=== PATIENT | male | born 1950 | race Caucasian/White ===

== ENCOUNTER → 2024-01-07 10:42 | Outpatient (REF) | payer MEDICARE, OTHER, SELFPAY | LOC: HWRAD 10:42 | PROVIDERS: ATTENDING PHYSICIAN Family Medicine | DX: E78.2 Mixed hyperlipidemia (principal) | CPT/HCPCS: 75571 ==

== ENCOUNTER → 2024-04-06 07:27 | Outpatient (REF) | payer MEDICARE, OTHER, SELFPAY | LOC: RCS 07:27 | PROVIDERS: ATTENDING PHYSICIAN Internal Medicine Cardiovascular Disease; FAMILY PHYSICIAN Family Medicine | DX: E78.2 Mixed hyperlipidemia (principal); R93.1 Abnormal findings on diagnostic imaging of heart and coronary circulation; I71.21 Aneurysm of the ascending aorta, without rupture; I00 Rheumatic fever without heart involvement | CPT/HCPCS: 93017 ==

== ENCOUNTER → 2024-04-28 09:17 | Outpatient (REF) | payer MEDICARE, OTHER, SELFPAY | LOC: HWRCS 09:17 | PROVIDERS: ATTENDING PHYSICIAN Internal Medicine Cardiovascular Disease; FAMILY PHYSICIAN Family Medicine | DX: E78.2 Mixed hyperlipidemia (principal); R93.1 Abnormal findings on diagnostic imaging of heart and coronary circulation; Z78.9 Other specified health status; I00 Rheumatic fever without heart involvement | CPT/HCPCS: 93306 ==

== ENCOUNTER → 2024-05-05 11:07 | Outpatient (REF) | payer MEDICARE, OTHER, SELFPAY | LOC: DHCBC/DCA 11:07 | PROVIDERS: ATTENDING PHYSICIAN Internal Medicine Cardiovascular Disease; FAMILY PHYSICIAN Family Medicine | DX: R94.39 Abnormal result of other cardiovascular function study (principal); R93.1 Abnormal findings on diagnostic imaging of heart and coronary circulation; I71.21 Aneurysm of the ascending aorta, without rupture; E78.2 Mixed hyperlipidemia | CPT/HCPCS: 78452; 93017; A9500 ==

== ENCOUNTER 2024-09-04 16:53 | Emergency (ER) | payer MEDICARE, OTHER, SELFPAY ==
[2024-09-04 16:55] VITALS: BP 175/96
--- NOTE | 2024-09-04 17:58 | ED.GENMED ---
History of Present Illness
General
Chief Complaint: Fall
Time Seen by Provider: 09/04/24 17:48
History of Present Illness
History of Present Illness:
74-year-old male history of hyperlipidemia presenting status post mechanical fall. Patient states that the bottom of his shoe got caught on step causing him to trip and fall. Patient states that he landed on his right side. Patient reports
striking his head, no loss of consciousness. Patient reports right shoulder pain, right lower rib pain and right hand pain. Patient denies numbness, weakness or tingling. Patient is not on blood thinners. Tetanus up-to-date. Patient denies neck
or back pain.
Phy Exam
Physical Exam
Physical Exam:
General: Alert, no acute distress
Head: 1.5cm laceration superior to right eyebrow with inferior superficial abrasion. ecchymosis inferior to right eye
Eyes: clear conjunctiva
Neck: supple
Cardiac: regular rate and rhythm, no murmur
Lungs: clear to auscultation bilaterally. No wheezes, rales, or rhonchi. Speaking full unlabored sentences. No respiratory distress.
Abdomen: soft, nondistended nontender. No rebound or guarding.
MSK: no lower extremity edema bilaterally. No deformity. no tenderness to palpation to right shoulder. FROM right shoulder. no tenderness to palpation to right elbow, wrist, or hand. no right snuff box tenderness. superficial abrasion to lateral
aspect of right 5th metacarpal. ecchymosis to radial aspect of right hand. 2+ right radial pulse. FROM bilateral hips and knees.
Skin: warm, dry
Neuro: Alert and oriented x3. no focal deficits
Course
Orders/Labs/Results
Orders:
Orders
09/04/24 17:56
CT Cervical Spine W/o Iv Contr Urgent
Comment:
Reason For Exam: fall
CT Head W/o Iv Contrast Urgent
Comment:
Reason For Exam: fall head trauma
CR Hand - Right Min 3 Views Urgent
Comment:
Reason For Exam: pain/bruising
CR Shoulder - Right Min 2 View Urgent
Comment:
Reason For Exam: pain s/p fall
CXR2 [CR Chest - 2 Views ] Urgent
Comment:
Reason For Exam: fall, right lower rib pain
09/04/24 20:42
Ibuprofen [Motrin] 800 mg PO NOW STA
Vital Signs
Initial and Last Documented VS:
Initial Vital Signs
Temp Pulse Resp BP Pulse Ox
97.9 F 68 16 175/96 98
09/04/24 16:55 09/04/24 16:55 09/04/24 16:55 09/04/24 16:55 09/04/24 16:55
Last Documented Vital Signs
Temp Pulse Resp BP Pulse Ox
97.9 F 68 16 175/96 98
09/04/24 16:55 09/04/24 16:55 09/04/24 16:55 09/04/24 16:55 09/04/24 16:55
Procedures
Laceration Closure
superior to right eyebrow:
Status of Wound: clean
Size of Wound in cm: 1.5
Description of Wound Edges: sharp
Preparation: cleaned with saline
Anesthesia: 2% Lidocaine with epi
Revision/Debridement: routine- no revision
Type of Closure: single layer closure
Skin Closure Material: 5-0 nylon
Number of sutures: 5
Splinting/Sling Placement
right wrist:
Pre-splint extermity exam: neurovascular intact
Type of splint: jamshid wrap and volar
Splint material: fiberglass
Splint checked by provider?: Yes
Normal distal neurovascular exam?: Yes
MDM/Problems Addressed
Differential Diagnosis Includes:
Fracture, dislocation, muscular strain, intracranial hemorrhage
MDM/Problems Addressed:
Results reviewed. X-ray right hand shows nondisplaced fracture at the radial styloid with intra-articular extension, no dislocation.
CT head/cervical spine shows 1. No acute intracranial abnormality noted. 2. No acute fracture or subluxation of the cervical spine. Multilevel degenerative changes of the cervical spine.
X-ray right shoulder shows no fracture/dislocation
Chest x-ray shows no displaced rib fracture. No pneumothorax
Discussed results with patient at bedside. Applied volar splint to right wrist. Repaired laceration. Offered sling for right shoulder pain, patient declined. Stable for discharge with orthopedic and PCP follow-up
*Critical Care Note
Total Time (30-74mins, 75-104mins- exclusive of procedures): Not Applicable
ED Attending Note
-
Portions of this chart may have been created with voice recognition software.� Occasional wrong word or��sound alike� substitutions may have occurred due to the inherent limitations of voice recognition software.
Discharge Plan
Departure
Patient Disposition: Home (Routine Discharge)
Date of Disposition: 09/04/24
Time of Disposition: 22:33
Patient with high blood pressure during this ER visit?: Yes
Discharge Problem:
Laceration of eyebrow, right, Closed fracture of right distal radius
Instructions: Laceration Repair With Stitches (DC), BLOOD PRESSURE, Wrist Fracture
Referrals:
Onel Iniguez MD [Active] -
Vonnie Jorgensen DO [Family Provider] -
Activity Restrictions/Additional Instructions:
Take Tylenol 975mg every 6 hours and/or ibuprofen 800mg every 8 hours with food as needed for pain
Keep splint dry and clean. Apply plastic bag over splint prior to showering
You have 5 not dissolvable sutures that need to be removed in 5 to 7 days. Follow-up with primary care doctor, go to urgent care, or return to the emergency department for suture removal. Keep wound dry and clean for the first 24 hours. You may
wash as normal starting tomorrow. May apply topical antibiotic ointment to wound daily
Follow-up with orthopedics this week
Return to the emergency department for new/worsening symptoms
Interventions
Interventions:
*Risk Screen - Suicide Last Done: 09/04/24 16:55
*General Assessment Last Done: 09/04/24 16:55
ED-Musculoskeletal Assessment Last Done: 09/04/24 17:51
ED- Neurological Assessment Last Done: 09/04/24 17:51
ED-Skin Assessment Last Done: 09/04/24 17:51
Discharge Date and Time
Print Language: UKRAINIAN
[2024-09-04] MEDS: MOTRIN 800 MG PO (20:45)
== END 2024-09-04 23:31 | disposition home or self-care (01) ==
LOC: EMR 16:53
PROVIDERS: EMERGENCY PHYSICIAN Emergency Medicine; FAMILY PHYSICIAN Family Medicine
DX: S52.514A Nondisplaced fracture of right radial styloid process, initial encounter for closed fracture (principal); S01.111A Laceration without foreign body of right eyelid and periocular area, initial encounter; M25.511 Pain in right shoulder; W01.0XXA Fall on same level from slipping, tripping and stumbling without subsequent striking against object, initial encounter; E78.5 Hyperlipidemia, unspecified
CPT/HCPCS: 12011; 29125; 99284; 70450; 71046; 72125; 73030; 73130

== ENCOUNTER → 2024-10-18 14:40 | Outpatient (REF) | payer MEDICARE, OTHER, SELFPAY | LOC: MRI 3T 14:40 | PROVIDERS: ATTENDING PHYSICIAN Specialist; FAMILY PHYSICIAN Family Medicine | DX: M25.511 Pain in right shoulder (principal) | CPT/HCPCS: 73221 ==

== ENCOUNTER → 2025-03-11 09:27 | Outpatient (REF) | payer MEDICARE, OTHER, SELFPAY | LOC: WDC 09:27 | PROVIDERS: ATTENDING PHYSICIAN Family Medicine | DX: N63.22 Unspecified lump in the left breast, upper inner quadrant (principal) | CPT/HCPCS: 76642; 77063; 77067 ==

== ENCOUNTER 2025-06-07 06:27 | Day surgery (SDC) | payer MEDICARE, OTHER, SELFPAY | END 2025-06-07 15:54 | disposition home or self-care (01) | LOC: GI 06:27 | PROVIDERS: ATTENDING PHYSICIAN Internal Medicine Gastroenterology | DX: Z12.11 Encounter for screening for malignant neoplasm of colon (principal); K57.30 Diverticulosis of large intestine without perforation or abscess without bleeding; K64.8 Other hemorrhoids; Z86.0100 Personal history of colon polyps, unspecified; D12.2 Benign neoplasm of ascending colon; D12.4 Benign neoplasm of descending colon; K63.5 Polyp of colon | CPT/HCPCS: 45385; 45380; 88305 ==

== ENCOUNTER → 2025-06-17 10:08 | Outpatient (REF) | payer MEDICARE, OTHER, SELFPAY | LOC: HWRCS 10:08 | PROVIDERS: ATTENDING PHYSICIAN Internal Medicine Cardiovascular Disease; FAMILY PHYSICIAN Family Medicine | DX: I71.21 Aneurysm of the ascending aorta, without rupture (principal) | CPT/HCPCS: 93306 ==